=== PATIENT | male | born 1995 | race Caucasian/White ===

== ENCOUNTER 2019-07-22 00:25 | Emergency (ER) | payer OTHER ==
[~2019-07-22] VITALS: Ht 160 cm; Wt 45.4 kg
[2019-07-22 00:30] VITALS: BP 139/55
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
[2019-07-22 00:35] VITALS: BP 139/55
--- NOTE | 2019-07-22 00:35 | NUR ---
PATIENT BIB [facility] POLICE DEPT. PATIENT EXAMINED BY DR. ROSENTHAL. PATIENT MEDICALLY CLEARED AND RELEASED IN CUSTODY IN STABLE CONDITION. ORIGINAL PRE-BOOK FORM GIVEN TO OFFICER [employer] [id number].
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
== END 2019-07-22 00:35 | disposition home or self-care (01) ==
LOC: MED 00:25
DX: Z04.1 Encounter for examination and observation following transport accident (principal); Z02.89 Encounter for other administrative examinations; V89.2XXA Person injured in unspecified motor-vehicle accident, traffic, initial encounter; Y93.89 Activity, other specified; Y92.89 Other specified places as the place of occurrence of the external cause; Y99.8 Other external cause status
CPT/HCPCS: 99283

== ENCOUNTER 2023-09-24 16:41 | Emergency (ER) | payer SELFPAY ==
[~2023-09-24] VITALS: Ht 165.1 cm; Wt 54.4 kg
[2023-09-24 16:52] VITALS: BP 148/85; PULSE 105; RESP 16; TEMP 98.9; O2SAT 98
[2023-09-24] MEDS ORDERED: ONDA8TAB87 PO (17:48)
[2023-09-24] MEDS ORDERED: CHLO-757 PO (17:48)
[2023-09-24 17:52] LABS: BASOPHILS # (AUTO) 0.1 K/uL (0.00-0.22); BASOPHILS % (AUTO) 1.1 % (0.0-2.0); EOSINOPHILS % (AUTO) 0.5 % (0.0-4.0); HEMOGLOBIN 15.9 g/dL (12.0-18.0); LYMPHOCYTES # (AUTO) 0.8 K/uL (2.0-11.5); LYMPHOCYTES % (AUTO) 16.9 % (20.5-51.1); MEAN CORPUSCULAR HEMOGLOBIN 31 pg (27-31); MEAN CORPUSCULAR HGB CONC 35 g/dL (33-37); MEAN CORPUSCULAR VOLUME 89.3 fL (80-94); MONOCYTES # (AUTO) 0.1 K/uL (0.8-1.0); MONOCYTES % (AUTO) 2.9 % (1.7-9.3); NEUTROPHILS # (AUTO) 3.9 K/uL (1.8-7.7); NEUTROPHILS % (AUTO) 78.6 % (42.2-75.2); PLATELET COUNT (AUTO) 250 K/uL (140-450); RED BLOOD CELL COUNT(AUTO) 5.15 MIL/uL (4.20-6.10); RED CELL DISTRIBUTION WIDTH 12.9 % (11.6-13.7); WHITE BLOOD COUNT (AUTO) 4.9 K/uL (4.8-10.8)
[2023-09-24] MEDS: ONDANSETRON 4 MG/2 ML VIAL IVP ONE (18:02)
[2023-09-24] MEDS: LORazepam 1 MG TAB PO ONE (18:02)
[2023-09-24] MEDS: NACL 0.9% 1,000 ML IV ONE (18:03)
[2023-09-24 18:05] LABS: ANION GAP 16.1 (8-16); CALCIUM 9.8 mg/dL (8.5-10.1); CARBON DIOXIDE 29.7 mmol/L (21-32); CREATININE 0.6 mg/dL (0.6-1.3); POTASSIUM 3.8 mmol/L (3.5-5.1)
[2023-09-24 18:11] LABS: ALBUMIN 5.3 g/dL (3.4-5.0); BILIRUBIN,DIRECT 0.2 mg/dL (0.0-0.3); TOTAL BILIRUBIN 0.6 mg/dL (0.0-1.0); TOTAL PROTEIN, SERUM 9.8 g/dL (6.4-8.2)
[2023-09-24 18:30] VITALS: BP 120/70; PULSE 97; RESP 16; TEMP 98.2; O2SAT 98
== END 2023-09-24 18:36 | disposition home or self-care (01) ==
LOC: MED 16:41
DX: F10.239 Alcohol dependence with withdrawal, unspecified (principal); R11.2 Nausea with vomiting, unspecified; F41.9 Anxiety disorder, unspecified; R03.0 Elevated blood-pressure reading, without diagnosis of hypertension; Z79.899 Other long term (current) drug therapy; Y90.9 Presence of alcohol in blood, level not specified
CPT/HCPCS: 36415; 80048; 80076; 83690; 85025; 96361; 96374; 99283; J2405; J7030

== ENCOUNTER 2023-12-22 11:16 | Emergency (ER) | payer SELFPAY ==
[~2023-12-22] VITALS: Ht 165.1 cm; Wt 58.7 kg
[~2023-12-22 11:16] MED LIST: CHLO-757 PO; ONDA8TAB87 PO
[2023-12-22 11:18] VITALS: BP 151/117; PULSE 123; RESP 20; TEMP 98.9; O2SAT 95
[2023-12-22] MEDS: THIAMINE 200 MG/2 ML VIAL IV ONE (12:11)
[2023-12-22] MEDS: FOLIC ACID 1 MG TAB PO ONE (12:11)
[2023-12-22] MEDS: NACL 0.9% 1,000 ML IV ONE (12:18)
[2023-12-22 12:37] LABS: BASOPHILS % (AUTO) 1.2 % (0.0-2.0); EOSINOPHILS % (AUTO) 0.5 % (0.0-4.0); HEMATOCRIT 43.5 % (36-52); HEMOGLOBIN 15.3 g/dL (12.0-18.0); LYMPHOCYTES # (AUTO) 0.7 K/uL (2.0-11.5); LYMPHOCYTES % (AUTO) 21.8 % (20.5-51.1); MEAN CORPUSCULAR HEMOGLOBIN 31 pg (27-31); MEAN CORPUSCULAR HGB CONC 35 g/dL (33-37); MEAN CORPUSCULAR VOLUME 87.2 fL (80-94); MONOCYTES # (AUTO) 0.2 K/uL (0.8-1.0); MONOCYTES % (AUTO) 4.6 % (1.7-9.3); NEUTROPHILS # (AUTO) 2.4 K/uL (1.8-7.7); NEUTROPHILS % (AUTO) 71.9 % (42.2-75.2); PLATELET COUNT (AUTO) 191 K/uL (140-450); RED BLOOD CELL COUNT(AUTO) 4.99 MIL/uL (4.20-6.10); RED CELL DISTRIBUTION WIDTH 13.7 % (11.6-13.7); WHITE BLOOD COUNT (AUTO) 3.4 K/uL (4.8-10.8)
[2023-12-22 12:45] LABS: APPEARANCE,URINE CLEAR (CLEAR); BILIRUBIN,URINE NEGATIVE (NEGATIVE); BLOOD, URINE NEGATIVE (NEGATIVE); COLOR,URINE YELLOW (YELLOW); LEUKOCYTE ESTERASE ,URINE NEGATIVE (NEGATIVE); NITRITE, URINE NEGATIVE (NEGATIVE); PROTEIN,URINE 1+ (NEGATIVE); UGLUCOSE NEGATIVE (NEGATIVE); UROBILINOGEN,URINE 0.2 EU/dL (0.2 - 1)
[2023-12-22 12:56] LABS: CALCIUM 8.6 mg/dL (8.5-10.1); CARBON DIOXIDE 30.5 mmol/L (21-32); CREATININE 0.7 mg/dL (0.6-1.3); POTASSIUM 3.5 mmol/L (3.5-5.1)
[2023-12-22 13:00] LABS: ALBUMIN 4.5 g/dL (3.4-5.0); BILIRUBIN,DIRECT 0.1 mg/dL (0.0-0.3); TOTAL BILIRUBIN 0.5 mg/dL (0.0-1.0); TOTAL PROTEIN, SERUM 8.5 g/dL (6.4-8.2)
[2023-12-22 13:04] LABS: BACTERIA,URINE 1+ /HPF (None Seen); MUCUS,URINE 1+ /LPF (None Seen); RBC,URINE 0-5 /HPF (0-5); SQUAMOUS EPITHELIAL CELL,UR 4-10 (MOD) /LPF (0-3 (FEW))
[2023-12-22] MEDS ORDERED: DIAZ-950 PO (13:55)
[2023-12-22] MEDS ORDERED: ONDA-188 PO (13:56)
[2023-12-22] MEDS: diazePAM 5 MG TAB PO ONE (14:29)
[2023-12-22 14:38] VITALS: BP 128/77; PULSE 100; RESP 15; TEMP 98.9; O2SAT 98
== END 2023-12-22 14:33 | disposition home or self-care (01) ==
LOC: MED 11:16
DX: F10.129 Alcohol abuse with intoxication, unspecified (principal); Z79.899 Other long term (current) drug therapy; Y90.8 Blood alcohol level of 240 mg/100 ml or more
CPT/HCPCS: 36415; 80048; 80076; 81001; 83690; 85025; 87086; 96361; 96374; 99283; G0482; J3411; J7030

== ENCOUNTER 2024-01-13 03:26 | Emergency (ER) | payer SELFPAY ==
[~2024-01-13] VITALS: Ht 167.6 cm; Wt 54.4 kg
[~2024-01-13 03:26] MED LIST changes: +DIAZ-950 PO; +ONDA-188 PO
[2024-01-13 03:30] VITALS: BP 147/69; PULSE 116; RESP 20; TEMP 97.7; O2SAT 99
[2024-01-13] MEDS: NACL 0.9% 1,000 ML IV ONE ×2 (04:16→05:08)
[2024-01-13] MEDS: LORazepam 2 MG/ML VIAL IVP ONE (04:23)
[2024-01-13 07:47] VITALS: BP 105/71; PULSE 86; RESP 19; TEMP 98; O2SAT 96
== END 2024-01-13 07:47 | disposition home or self-care (01) ==
LOC: MED 03:26
DX: F10.239 Alcohol dependence with withdrawal, unspecified (principal); Z79.899 Other long term (current) drug therapy; Y90.9 Presence of alcohol in blood, level not specified
CPT/HCPCS: 96361; 96374; 99285; J2060; J7030